=== PATIENT | male | born 1990 | race American Indian/Alaskan Native ===

== ENCOUNTER 2019-03-06 15:11 | Emergency (ER) | payer OTHER ==
[2019-03-06 15:38] VITALS: BP 124/71
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
== END 2019-03-06 19:35 | disposition home or self-care (01) ==
LOC: ED 15:11
DX: M54.2 Cervicalgia (principal); M54.9 Dorsalgia, unspecified; V49.49XA Driver injured in collision with other motor vehicles in traffic accident, initial encounter; Y93.89 Activity, other specified; Y92.410 Unspecified street and highway as the place of occurrence of the external cause; Y99.8 Other external cause status
CPT/HCPCS: 72040